=== PATIENT | male | born 1945 | race Caucasian/White ===

== ENCOUNTER 2019-10-14 10:48 | Day surgery (SDC) | payer OTHER ==
[2019-10-04 09:43] VITALS: BMI 21.9
[2019-10-14] MEDS ORDERED: Lidocaine 1% PF 5 ML VIAL ONE (11:22)
[2019-10-14] MEDS ORDERED: Dexamethasone 20 MG/5 ML VIAL ONE (11:22)
[2019-10-14] MEDS ORDERED: EPHEDRINE 25 MG/5 ML SYRINGE ONE (11:22)
[2019-10-14] MEDS ORDERED: Rocuronium Bromide 10 MG/ML (10ML VIAL) ONE (11:22)
[2019-10-14] MEDS ORDERED: PROPOFOL 200 MG/20 ML VIAL ONE (11:22)
[2019-10-14] MEDS ORDERED: Glycopyrrolate 0.2 MG/ML 5 ML SYRINGE ONE (11:22)
[2019-10-14] MEDS ORDERED: Ondansetron PF 4 MG/2 ML Vial ONE (11:22)
[2019-10-14 12:19] LABS: Hemoglobin 15.9 g/dL (14.0-18.0); Mean Corpuscular HGB CONC 33.7 g/dL (32.0-36.0); Mean Corpuscular Hemoglobin 30.5 pg (27.0-31.0); Mean Corpuscular Volume 90.6 fL (78.0-98.0); Mean Platelet Volume 8.2 fL (7.4-10.4); Platelet Count 258 thou/uL (130-400); RBC Distribution Width 13.4 % (11.5-14.5); Red Blood Cell (RBC) Count 5.21 mill/uL (4.70-6.10); White Blood Cell (WBC) Count 12.6 thou/uL (4.8-10.8)
[2019-10-14 12:30] LABS: PTT 32.7 SEC (22.9-36.1)
[2019-10-14 12:42] LABS: Anion Gap 12 mmol/L (10-20); BUN (Urea Nitrogen) 15 mg/dL (8.4-25.7); Calc. Creatinine Clearance 66 mL/min (70-130); Calcium 9.1 mg/dL (7.8-10.44); Carbon Dioxide 26 mmol/L (23-31); Chloride 101 mmol/L (98-107); Estimated GFR-MDRD 83; Glucose 86 mg/dL (83-110); Potassium 4.3 mmol/L (3.5-5.1); Sodium 135 mmol/L (136-145)
[2019-10-14] MEDS ORDERED: Thrombin 5000 UNITS/5 ML VIAL ONE (14:03)
[2019-10-14] MEDS ORDERED: Fentanyl 100 MCG/2 ML VIAL ONE ×4 (14:10→16:43)
[2019-10-14] MEDS ORDERED: Bacitracin Zinc Ointment 30 gm TUBE ONE (15:19)
[2019-10-14] MEDS ORDERED: Acetaminophen 325 MG TAB PO PRN (16:39)
[2019-10-14] MEDS ORDERED: traMADol HCl 50 MG TAB PO PRN (16:39)
[2019-10-14] MEDS ORDERED: Milk Of Magnesia 30 ML UDCUP PO PRN (16:39)
[2019-10-14] MEDS ORDERED: Ondansetron PF 4 MG/2 ML Vial IVP PRN (16:39)
[2019-10-14] MEDS ORDERED: Acetaminophen/Codeine 30-300mg Tablet PO PRN (16:39)
[2019-10-14] MEDS ORDERED: tiZANidine HCl 4 MG TAB PO PRN (16:39)
[2019-10-14] MEDS ORDERED: Bisacodyl 10 MG SUPP PR PRN (16:39)
[2019-10-14] MEDS ORDERED: Fleet Enema 133 ML BOT PR PRN (16:39)
[2019-10-14] MEDS ORDERED: Morphine 2 MG/ML SYRINGE SLOW IVP PRN (16:39)
[2019-10-14] MEDS ORDERED: Mag-Al 1200 mg/1200 mg/30 ML UDCUP PO PRN (16:39)
[2019-10-14] MEDS ORDERED: HYDROmorphone 2 MG/ML VIAL SLOW IVP PRN (16:44)
[2019-10-14] MEDS ORDERED: Ondansetron HCl/PF 4 MG/2 ML Vial IVP PRN (16:44)
[2019-10-14] MEDS ORDERED: Meperidine HCl/PF 25 MG/ML VIAL SLOW IVP PRN (16:44)
[2019-10-14] MEDS ORDERED: HYDROmorphone 0.5 MG/0.5 ML SYRINGE ONE ×2 (16:56→17:17)
[2019-10-14] MEDS: CEFAZOLIN 2 GM in Premix Bag 1 BAG IVPB SCH (20:22)
[2019-10-14] MEDS: HYDROcodone/Acetaminophen 7.5/325 mg Tablet PO PRN (20:22)
[2019-10-15] MEDS: HYDROcodone/Acetaminophen 7.5/325 mg Tablet PO PRN ×2 (00:30→08:38)
[2019-10-15] MEDS: Sodium Chloride 0.9% 1,000 ML IV SCH ×2 (03:34→08:40)
[2019-10-15] MEDS: CEFAZOLIN 2 GM in Premix Bag 1 BAG IVPB SCH (05:22)
--- NOTE | 2019-10-15 09:57 | OP ---
DATE OF PROCEDURE: 10/14/2019 LOCATION: OR 12. BENEFITS CONSULTANT: Laura Bartlett PA-C PREPROCEDURE DIAGNOSES: Left L3-L4 and left L5 radiculopathies with low back and left leg pain with lumbar disk extrusions, paracentral, lateral, and far-lateral. POSTPROCEDURE DIAGNOSES: Left L3-L4 and left L5 radiculopathies with low back and left leg pain with lumbar disk extrusions, paracentral, lateral, and far-lateral. PROCEDURES PERFORMED: 1. Left L3-L4 and left L4-L5 hemilaminotomies, foraminotomies, and diskectomy. 2. Left L3-L4 trans facet diskectomy. 3. Use of operative microscope for microdissection. DESCRIPTION OF PROCEDURE: After informed consent was obtained from the patient, the patient was brought to the OR. Proper patient, pause, and identification were carried out. A linear kayden was made over the region just superior where his prior wound was. This area was sterilely cleansed, prepared, and draped. Proper patient, pause, and identification were carried out. The wound was then opened with combination of sharp, monopolar, and blunt dissection. The left L3-L4 and left L4-L5 segments were exposed. Localization film confirmed area of interest then performed. Left L3-L4 and left L4-L5 hemilaminotomies, foraminotomies, and diskectomies with the use of the operative microscope. We then performed a left L3-L4 trans facet approach for decompression of the exiting left L3 nerve root. The lateral and far-lateral disk extruded fragments were removed. Hemostasis was maximized throughout as well and the wound was copiously irrigated. The wound was then closed in anatomic layers following sprinkling of vancomycin powder. The patient was emerged from anesthesia. Job ID: [id number]
[2019-10-15 10:45] VITALS: BP 113/66; TEMP 98
--- NOTE | 2019-10-15 12:28 | PRG ---
DATE OF SERVICE: 10/15/2019 Mr. Tamayo is postoperative day 1 from lumbar decompression and lateral/far-lateral diskectomy. He has had resolution in his leg pain. He is mobilizing and voiding on his own. I am very pleased with how he is doing. We will arrange for dismissal. Job ID: [id number]
== END 2019-10-15 15:02 | disposition home or self-care (01) ==
LOC: SDC 10:48 → SURG A 16:46 → SDC 10-15 15:02
PROVIDERS: ATTEND Surgery
PROC: 0SB20ZZ Excision of Lumbar Vertebral Disc, Open Approach (ICD-10-PCS; principal; 2019-10-14)
DX: M51.16 Intervertebral disc disorders with radiculopathy, lumbar region (principal); M48.062 Spinal stenosis, lumbar region with neurogenic claudication
CPT/HCPCS: 36415; 76000; 80048; 85027; 85610; 85730; 93005; 93010; J0690; J1100; J1170; J2001; J2405; J2704; J3010; J3370; J3490